=== PATIENT | male | born 1975 | race Caucasian/White ===

== ENCOUNTER 2017-12-27 10:33 | Emergency (ER) | payer BC ==
[2017-12-27] MEDS: LORAZEPAM 2 MG INJ IV (11:14)
[2017-12-27] MEDS: SOD CHLORIDE 0.9% 1,000 ML IV (11:14)
[2017-12-27 11:41] LABS: ALANINE AMINOTRANSFERASE 385 IU/L (13-69); ALBUMIN 3.4 g/dl (3.3-4.9); ALBUMIN/GLOBULIN RATIO 0.59; ALKALINE PHOSPHATASE 353 IU/L (42-121); ANION GAP 26 (8-16); ASPARTATE AMINO TRANSFERASE 578 IU/L (15-46); BILIRUBIN,INDIRECT 0.8 mg/dl (0-1.1); BILIRUBIN,TOTAL 1.1 mg/dl (0.2-1.3); BLOOD UREA NITROGEN 14 mg/dl (7-20); CALCIUM 8.7 mg/dl (8.4-10.2); CARBON DIOXIDE 13 mmol/L (21-31); CHLORIDE 95 mmol/L (97-110); CREATININE 0.97 mg/dl (0.61-1.24); GLUCOSE 88 mg/dl (70-220); SODIUM 127 mmol/L (135-144); TOTAL PROTEIN 9.1 g/dl (6.1-8.1)
[2017-12-27 11:42] LABS: ACETAMINOPHEN < 10.0 ug/ml (10.0-30.0); ETHANOL < 10.0 mg/dl; SALICYLATE < 1.0 mg/dl (5.0-30.0)
[2017-12-27 11:44] LABS: POTASSIUM 6.8 mmol/L (3.5-5.1)
[2017-12-27] MEDS ORDERED: FUROSEMIDE 40 MG INJ IV (11:47)
[2017-12-27] MEDS ORDERED: NA POLYST SULFON 15 GM/60 ML BTL PO (11:47)
[2017-12-27] MEDS ORDERED: CA CHLORIDE 10% 10 ML SYRINGE IV (11:47)
[2017-12-27] MEDS ORDERED: ALBUTEROL 0.5% (NEB) 2.5 MG/0.5 ML AMP INH (11:47)
[2017-12-27] MEDS ORDERED: INSULIN REGULAR, HUMAN 100 UNIT/1 ML 3ML VIAL IVP (11:47)
[2017-12-27] MEDS ORDERED: NA BICARBONATE 8.4% 50 ML SYG IV (11:47)
[2017-12-27 11:55] LABS: AMPHETAMINE/METHAMPHETAMINE Negative (NEGATIVE); CANNABINOIDS Positive (NEGATIVE)
[2017-12-27 11:58] LABS: BARBITURATES Negative (NEGATIVE); BENZODIAZEPINES Negative (NEGATIVE); COCAINE Negative (NEGATIVE); OPIATES Negative (NEGATIVE)
[2017-12-27 12:00] LABS: ABNORMAL IP MESSAGE 1; MEAN CORPUSCULAR VOLUME 90.5 fl (82.0-101.0); MEAN PLATELET VOLUME 12.1 fl (7.4-10.4); NUCLEATED RED BLOOD CELLS% 0.9 /100WBC (0.0-0.0); POSITIVE DIFF @See below; RED CELL DISTRIBUTION WIDTH 15.4 % (11.5-14.5)
[2017-12-27] MEDS ORDERED: DEXTROSE 50% 50 ML SYRINGE IV (12:00)
[2017-12-27 12:01] LABS: ADD UMIC YES; UR ASCORBIC ACID NEGATIVE (NEGATIVE); UR BILIRUBIN (Dip) 2+ mg/dL (NEGATIVE); UR BLOOD (Dip) NEGATIVE (NEGATIVE); UR CLARITY SLIGHTLY CLOUDY (CLEAR); UR COLOR AMBER (YELLOW); UR GLUCOSE (Dip) NEGATIVE (NEGATIVE); UR KETONES (Dip) TRACE mg/dL (NEGATIVE); UR LEUKOCYTE ESTERASE (Dip) NEGATIVE Leu/ul (NEGATIVE); UR MUCUS MODERATE /HPF (NONE SEEN); UR NITRITE (Dip) NEGATIVE (NEGATIVE); UR RBC 1 /HPF (0-5); UR SPECIFIC GRAVITY (Dip) 1.021 (1.003-1.030); UR TOTAL PROTEIN (Dip) 1+ mg/dl (NEGATIVE); UR UROBILINOGEN (Dip) 2+ mg/dL (NEGATIVE); UR WBC 6 /HPF (0-5)
[2017-12-27 12:44] LABS: ANION GAP 20 (8-16); BLOOD UREA NITROGEN 14 mg/dl (7-20); CARBON DIOXIDE 19 mmol/L (21-31); CHLORIDE 96 mmol/L (97-110); CREATININE 0.99 mg/dl (0.61-1.24); GLUCOSE 77 mg/dl (70-220); SODIUM 130 mmol/L (135-144)
[2017-12-27 12:55] LABS: MEAN CORPUSCULAR HGB CONC 37.6 g/dl (32.0-37.0)
[2017-12-27 12:56] LABS: PLATELET COUNT 107 10^3/UL (140-415)
[2017-12-27 12:59] LABS: ADD MAN DIFF? YES; HEMOGLOBIN 14.3 g/dl (14.0-18.0)
[2017-12-27 13:41] LABS: ANISOCYTOSIS 1+ (0-0); BAND NEUTROPHILS #M 0.3 10^3/ul (0.0-0.6); BAND NEUTROPHILS % (M) 5 % (0-4); EOSINOPHILS % (M) 2 % (0-7); ERYTHROBLAST% (NRBC) (M) 1 % (0-0); LYMPHOCYTES #M 0.2 10^3/ul (0.8-2.9); LYMPHOCYTES % (M) 3 % (15-51); MONOCYTE #M 0.3 10^3/ul (0.3-0.9); MONOCYTES % (M) 5 % (0-11); PLATELET ESTIMATE DECREASED; REACTIVE LYMPHOCYTES% (M) 1 % (0-0); SEG NEUT #M 5.9 10^3/ul (1.6-7.5); SEGMENTED NEUTROPHILS (M) % 84 % (39-77); SMUDGE%M 102 % (0-0)
== END 2017-12-27 14:31 | disposition home or self-care (01) ==
LOC: E/R 14:31
DX: F10.230 Alcohol dependence with withdrawal, uncomplicated (principal); R00.0 Tachycardia, unspecified; D69.6 Thrombocytopenia, unspecified; R25.1 Tremor, unspecified; K70.9 Alcoholic liver disease, unspecified; E87.1 Hypo-osmolality and hyponatremia; E87.2 Acidosis; R74.0 Nonspecific elevation of levels of transaminase and lactic acid dehydrogenase [LDH]; F17.210 Nicotine dependence, cigarettes, uncomplicated
CPT/HCPCS: 36415; 80048; 80053; 80307; 81001; 85025; 93005; 96361; 96374; 99284-25